=== PATIENT | female | born 1955 | race American Indian/Alaskan Native ===

== ENCOUNTER 2017-10-29 14:28 | Emergency (ER) | payer BC ==
[2017-10-29 14:37] VITALS: BP 132/80
--- NOTE | 2017-10-29 17:10 | Emergency Department Report ---
ED Extremity Problem HPI - General Chief complaint: Wound/Laceration Stated complaint: lac to arm Time Seen by Provider: 10/29/17 16:14 Source: patient Mode of arrival: Ambulatory Limitations: No Limitations - History of Present Illness Initial comments: Patient is a 62-year-old female who was cutting a box with a box gluer and she actually cut her left forearm. Patient is on blood thinners status post heart surgery several years ago patient could not get the bleeding stopped. Patient states the pain is 6 out of 10 in severity. Patient has no complaints at this time. - Related Data Home Medications Medication Instructions Recorded Confirmed Last Taken Letrozole 1 tab PO DAILY 02/04/16 02/04/16 02/04/16 Allergies Allergy/AdvReac Type Severity Reaction Status Date / Time No Known Allergies Allergy Verified 10/29/17 14:31 ED Review of Systems ROS: Stated complaint: lac to arm Other details as noted in HPI Comment: All other systems reviewed and negative ED Past Medical Hx - Past Medical History Hx Hypertension: (no meds) Additional medical history: Dental/oral infection - Surgical History Additional Surgical History: left mastectomy - Social History Smoking Status: Never Smoker Substance Use Type: None - Medications Home Medications: Home Medications Medication Instructions Recorded Confirmed Last Taken Type Letrozole 1 tab PO DAILY 02/04/16 02/04/16 02/04/16 History ED Physical Exam - General Limitations: No Limitations General appearance: alert, in no apparent distress - Head Head exam: Present: atraumatic, normocephalic - Eye Eye exam: Present: normal appearance - ENT ENT exam: Present: mucous membranes moist - Neck Neck exam: Present: normal inspection - Respiratory Respiratory exam: Present: normal lung sounds bilaterally. Absent: respiratory distress - Cardiovascular Cardiovascular Exam: Present: regular rate, normal rhythm. Absent: systolic murmur, diastolic murmur, rubs, gallop - GI/Abdominal GI/Abdominal exam: Present: soft, normal bowel sounds - Extremities Exam Extremities exam: Present: normal inspection, other (patient has a 2 cm laceration to the left forearm.) - Back Exam Back exam: Present: normal inspection - Neurological Exam Neurological exam: Present: alert, oriented X3 - Psychiatric Psychiatric exam: Present: normal affect, normal mood - Skin Skin exam: Present: warm, dry, intact, normal color. Absent: rash ED Course Vital Signs 10/29/17 14:31 Temperature 98.1 F Pulse Rate 99 H Respiratory 18 Rate Blood Pressure 132/80 O2 Sat by Pulse 99 Oximetry - Laceration /Wound Repair Left Arm Wound Location: upper extremity Wound Length (cm): 2 Wound's Depth, Shape: linear Wound Explored: clean Irrigated w/ Saline (ccs): 100 Betadine Prep?: Yes Anesthesia: 1% Lidocaine Wound Repaired With: sutures (willam) Number of Sutures: 4 Layer Closure?: No Progress: Seen very small arterial bleed present which did stop after the first staple was placed. ED Medical Decision Making - Medical Decision Making Patient wound was dressed with antimicrobial dressing and the patient will be discharged home. Critical care attestation.: If time is entered above; I have spent that time in minutes in the direct care of this critically ill patient, excluding procedure time. ED Disposition Clinical Impression: Laceration Disposition: DC-01 TO HOME OR SELFCARE Is pt being admited?: No Does the pt Need Aspirin: No Condition: Stable Instructions: Laceration (ED), Staple Care (ED) Referrals: PRIMARY CARE, [Primary Care Provider] - 3-5 Days
== END 2017-10-29 17:20 | disposition home or self-care (01) ==
LOC: ED 14:28
DX: S51.812A Laceration without foreign body of left forearm, initial encounter (principal); W26.8XXA Contact with other sharp object(s), not elsewhere classified, initial encounter; Y93.89 Activity, other specified; Y92.89 Other specified places as the place of occurrence of the external cause; Y99.8 Other external cause status
CPT/HCPCS: 99282